=== PATIENT | female | born 1955 | race Caucasian/White ===

== ENCOUNTER 2024-04-10 10:22 | Emergency (ER) | payer MEDICARE ==
[~2024-04-10] VITALS: Ht 154.9 cm; Wt 80.7 kg
[2024-04-10] MEDS ORDERED: IBUP-1955 PO (12:08)
[2024-04-10 12:17] VITALS: BP 133/84; TEMP 98; O2SAT 99
== END 2024-04-10 12:17 | disposition home or self-care (01) ==
LOC: ER 10:33
DX: S52.571A Other intraarticular fracture of lower end of right radius, initial encounter for closed fracture (principal); W01.0XXA Fall on same level from slipping, tripping and stumbling without subsequent striking against object, initial encounter; Y93.89 Activity, other specified; Y92.89 Other specified places as the place of occurrence of the external cause; Y99.8 Other external cause status
CPT/HCPCS: 73110